=== PATIENT | female | born 1975 | race African-American/Black ===

== ENCOUNTER → 2017-03-16 | Outpatient (CLI) | payer SELFPAY ==
[~2017-03-16] MED LIST: AMITIZA24 MCG PO; ATARAX PO; BACTRIM 400-801 TA1 PO; BENTYL10 M1 PO; BENTYL20 MG DOB; BIRTH CONTROL PO; CELEBREX PO; FLEXERIL10 MG PO; GRALISE600 MG PO; HYDROCODON-ACE1 EAC4 PO; HYDROCODONE-A1 UDTA2 PO; HYDROXYZINE PAM25 M1 PO; IBUPROFEN800 MG PO; LASIX20 MG PO; LEVOTHYROXINE25 MC1 PO; LINZESS290 MCG PO; MELADOX3 MG PO; NAPROSYN-EC500 M1; NEURONTIN; NEURONTIN300 MG PO; NORCO 10-325 TA1 TAB; OMEPRAZOLE40 M1 PO; OXYCODON HCL-1 UDTAB PO; OXYCODON HCL-AP1 TA2 PO; PAXIL CR25 MG PO; PHENERGAN25 M1 DOB; PHENTERMINE HCL15 MG PO; PREDNISONE; PRILOSEC40 MG PO; PROTONIX PO; TOPAMAX25 MG PO; VIIBRYD10 MG PO; VOLTAREN50 MG PO; VOLTAREN75 MG PO
[2017-03-16 13:50] LABS: CHOLESTEROL 159 mg/dL (0-200); GLUCOSE FASTING 88 mg/dL (70-110); HDL CHOLESTEROL 46 mg/dL (35-95); LDL CHOLESTEROL 70 mg/dL (-130); LDL/HDL RATIO 2 RATIO (0-4); TRIGLYCERIDES 213 mg/dL (10-160)
== END | disposition home or self-care (01) ==
LOC: CBAR 03-09 08:40
PROVIDERS: Surgery
DX: E66.01 Morbid (severe) obesity due to excess calories (principal)
CPT/HCPCS: 36415; 76000; 80061; 82947

== ENCOUNTER → 2017-06-23 | Outpatient (CLI) | payer OTHER ==
--- NOTE | ~2017-06-23 | CR186 ---
[facility] A Service of [facility] & [facility] RADIOLOGY TEXT RESULTS PATIENT: NICK GRULLON LOCATION: [facility] : 73 UNIT #: [id number] AGE: [address]: Marleny Nolasco APRN SEX: F ORDER DR: [id number] [facility] [address] [place], [place] [address] [id number] MR#: [id number] Acc #: [id number] NAME: NICK GRULLON : 1975 SEX: F STUDY DATE/TIME: 06/23/2017 12:07 UNIT: [facility] ROOM: STUDY DESCRIPTION: CR Lumbar Spine W Bend Min 6 V Attending Physician: Marleny Nolasco A.P.R.N. Referring Physician: Marleny Nolasco A.P.R.N. Ordering Physician: Marleny Nolasco A.P.R.N. 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 Patient states pain in lower back when bending for 3 months. Patient states lower back problems worse after radiofrequency ablation. COMPARISON Lumbar spine series 12/02/2015. TECHNIQUE AP, right oblique, left oblique, lateral, flexion, neutral, spot lateral lumbosacral, and extension views were obtained. FINDINGS Disc space height appears preserved on this examination. There may be minimal diminished disc height at L4-5 as described on previous examination, probably not clinically significant. No significant anterior or posterior osteophyte formation is identified. No significant facet arthropathy is seen. There is no evidence of anterolisthesis or retrolisthesis upon flexion or extension maneuvers. No bony neural foraminal stenosis is identified. Presumed gastric band device in place, incompletely imaged. Cholecystectomy. IMPRESSION 1. Probable minimal diminished disc height at L4-5, similar to the prior exam. Otherwise, normal lumbar spine series. No evidence of lumbar spine instability upon flexion or extension maneuvers. STS. [facility] A Service of [facility] & [facility] RADIOLOGY TEXT RESULTS PATIENT: [facility]ULL[id number] 73 UNIT #: [id number] AGE: [address]: Marleny Nolasco APRN SEX: F ORDER DR: Dictated by... Erendira Keller M.D. THIS IS AN ELECTRONICALLY VERIFIED REPORT Erendira Keller M.D. at 06/24/2017 2:21 PM [facility]/yoselin TD: 06/23/2017 22:04 JOB #: [id number] MEDICAL IMAGING REPORT Page 1 of 1 COPY
== END | disposition home or self-care (01) ==
LOC: CRAD 11:39
DX: M51.16 Intervertebral disc disorders with radiculopathy, lumbar region (principal)
CPT/HCPCS: 72114